=== PATIENT | female | born 1995 | race Caucasian/White ===

== ENCOUNTER 2019-05-02 22:02 | Emergency (ER) | payer MEDICAID ==
[~2019-05-02] VITALS: Ht 149.9 cm; Wt 87.5 kg
[2019-05-02 22:24] VITALS: Ht 149.9 cm; Wt 87.5 kg
[2019-05-03 01:02] VITALS: BP 103/69
== END 2019-05-03 01:02 | disposition home or self-care (01) ==
LOC: ED 22:02
DX: S30.1XXA Contusion of abdominal wall, initial encounter (principal); S80.212A Abrasion, left knee, initial encounter; S80.211A Abrasion, right knee, initial encounter; Z98.890 Other specified postprocedural states; V43.52XA Car driver injured in collision with other type car in traffic accident, initial encounter; Y93.I9 Activity, other involving external motion; Y92.488 Other paved roadways as the place of occurrence of the external cause; Y99.8 Other external cause status

== ENCOUNTER 2021-01-06 23:29 | Emergency (ER) | payer MEDICAID ==
[~2021-01-06] VITALS: Ht 149.9 cm; Wt 93.9 kg
[2021-01-06 23:38] VITALS: Ht 149.9 cm; Wt 93.9 kg
[2021-01-07 01:06] LABS: BASOPHIL % 0.5 % (0.2-1.3); PLATELET COUNT 279 x10^3mcL (179-408); RED CELL DISTRIBUTION WIDTH 13.8 % (12.3-17.7)
[2021-01-07 01:14] LABS: AMPHETAMINE QUAL UR NONE DETECTED (See below)
[2021-01-07 01:16] LABS: CALCIUM 8.3 mg/dL (8.5-10.1); CARBON DIOXIDE 23.2 mmol/L (21-32); CHLORIDE SERUM 105 mmol/L (98-107); CREATININE SERUM 0.6 mg/dL (0.6-1.0); GFR1 > 60 mL/min; GLUCOSE SERUM 126 mg/dL (74-106); POTASSIUM SERUM 3.9 mmol/L (3.5-5.1); SODIUM SERUM 140 mmol/L (136-145)
[2021-01-07 01:27] LABS: ALKALINE PHOSPHATASE 76 U/L (46-116); ALT/SGPT 36 U/L (14-59); AST/SGOT 17 U/L (15-37); T4(THYROXINE) 8.5 ug/dL (4.7-13.3); TOTAL PROTEIN, SERUM 6.8 g/dL (6.4-8.2)
[2021-01-07 05:13] VITALS: BP 108/66
== END 2021-01-07 05:13 | disposition home or self-care (01) ==
LOC: ED 23:29
PROVIDERS: Emergency Medicine
DX: O26.891 Other specified pregnancy related conditions, first trimester (principal); R00.2 Palpitations; Z3A.08 8 weeks gestation of pregnancy; Z98.890 Other specified postprocedural states